=== PATIENT | female | born 1990 | race Caucasian/White ===

== ENCOUNTER 2016-09-18 15:25 | Emergency (ER) | payer OTHER ==
[2016-09-18 15:47] VITALS: BP 101/61
--- NOTE | 2016-09-18 15:53 | UC ---
Ear Complaint HPI - HPI Summary HPI Summary: 26 y/o female presents to the urgent care c/o RT ear pain since yesterday. Pt reports she was swimming yesterday and ear pain started, but resolved after 2 hours. Today she went swimming again and ear pain started. Pain is 2/10 now and she has not taking anything to alleviate symptoms. Pt denies fever, cough, URI, dizziness, N/V/D, ROSS. - History of Current Complaint Chief Complaint: UCEar Stated Complaint: EAR PAIN Time Seen by Provider: 09/18/16 15:39 Hx Obtained From: Patient Hx Last Menstrual Period: mirena ?: No Onset/Duration: Gradual Onset, Lasting Days, Still Present Severity Initially: Mild Severity Currently: Mild Pain Intensity: 2 Pain Scale Used: 0-10 Numeric Aggravating Factors: Cold Alleviating Factors: Nothing - Allergies/Home Medications Allergies/Adverse Reactions: Allergies Allergy/AdvReac Type Severity Reaction Status Date / Time No Known Allergies Allergy Verified 09/18/16 15:43 PMH/Surg Hx/FS Hx/Imm Hx Previously Healthy: Yes - Surgical History Surgical History: None - Family History Known Family History: Positive: Hypertension Family History: Breast cancer - Social History Occupation: Employed Full-time Lives: With Family Alcohol Use: None Substance Use Type: None Smoking Status (MU): Never Smoked Tobacco Review of Systems Constitutional: Negative Skin: Negative Eyes: Negative ENT: Ear Ache - Right Respiratory: Negative Cardiovascular: Negative Gastrointestinal: Negative Genitourinary: Negative Motor: Negative Neurovascular: Negative Musculoskeletal: Negative Neurological: Negative Psychological: Negative All Other Systems Reviewed And Are Negative: Yes Physical Exam Triage Information Reviewed: Yes Appearance: Well-Appearing, No Pain Distress, Well-Nourished Vital Signs: Initial Vital Signs Temp 98.5 F 09/18/16 15:44 Pulse 64 09/18/16 15:44 Resp 16 09/18/16 15:44 BP 101/61 09/18/16 15:44 Pulse Ox 100 09/18/16 15:44 Vital Signs Reviewed: Yes Eye Exam: Normal Eyes: Positive: Conjunctiva Clear - PERRLA, EOMI, fundi grossly normal ENT: Positive: Normal ENT inspection, Hearing grossly normal, Pharynx normal, TMs normal - RT external ear canal w/ erythema and mild purulent discharge. TM peraly and positive light reflex. LF external ear canal and TM WNL, no tenderness on palaption or lymphadenopathy. Negative: Nasal congestion, Nasal drainage, Tonsillar swelling, Tonsillar exudate Ear Complaint Course/Dx - Course Course Of Treatment: 26 y/o female presents to the urgent care c/o RT ear pain since yesterday. Pt reports she was swimming yesterday and ear pain started, but resolved after 2 hours. Today she went swimming again and ear pain started. Pain is 2/10 now and she has not taking anything to alleviate symptoms. Pt denies fever, cough, URI, dizziness, N/V/D, ROSS. HX obtained. PE abnormal findigns:RT external ear canal w/ erythema and mild purulent discharge. TM peraly and positive light reflex. LF external ear canal and TM WNL , no tenderness on palaption or lymphadenopathy. Pt Rx ciprofloxacin otic drops x 7 days. Advised if symptoms do not improve or worsen to return to the urgent care for further evaluation and treatment. Pt understood and agreed. - Differential Dx/Diagnosis Differential Diagnosis/HQI/PQRI: Cerumen Impaction, Mastoiditis, Otitis Externa , Otitis Media Provider Diagnoses: 1-RT Otitis externa Discharge - Discharge Plan Condition: Stable Disposition: HOME Prescriptions: Ciprofloxacin HCl (Otic) [Ciprofloxacin 0.2% EAR DROPS] 0.2 % OT BID #1 edgar Patient Education Materials: Otitis Externa (ED) Referrals: No Primary Care Phys,NOPCP [Primary Care Provider] - [facility] [place] [facility] [Outside] Additional Instructions: PLease apply otic drops as directed. Take Ibuprofen or tylenol OTC q6-8hrs prn to alleviate pain. If symptoms do not improve or worsen please return to the urgent care or f/u with a PCP.
== END 2016-09-18 16:00 | disposition home or self-care (01) ==
LOC: UCEAST 15:25
DX: H60.91 Unspecified otitis externa, right ear (principal)
CPT/HCPCS: 99202; G0463

== ENCOUNTER 2016-09-19 12:20 | Emergency (ER) | payer OTHER ==
[2016-09-19 13:18] VITALS: BP 112/61
--- NOTE | 2016-09-19 14:24 | UC ---
Ear Complaint HPI - HPI Summary HPI Summary: complaint of right ear pain that started approx 2 days ago seen at urgent care and dx with otitis externa started antibiotic drops without any relief states she cant hear well not using any other medication for pain - History of Current Complaint Chief Complaint: UCEar Stated Complaint: EAR ACHE Time Seen by Provider: 09/19/16 14:10 Hx Obtained From: Patient Hx Last Menstrual Period: iud - Allergies/Home Medications Allergies/Adverse Reactions: Allergies Allergy/AdvReac Type Severity Reaction Status Date / Time No Known Allergies Allergy Verified 09/19/16 13:18 PMH/Surg Hx/FS Hx/Imm Hx Previously Healthy: No - otitis externa - Surgical History Surgical History: None - Family History Known Family History: Positive: Hypertension Negative: Cardiac Disease, Diabetes Family History: Breast cancer - Social History Occupation: Student Lives: With Family Alcohol Use: None Substance Use Type: None Smoking Status (MU): Never Smoked Tobacco Review of Systems Constitutional: Negative Skin: Negative Eyes: Negative ENT: Ear Ache Respiratory: Negative Cardiovascular: Negative Gastrointestinal: Negative Genitourinary: Negative Motor: Negative Neurovascular: Negative Musculoskeletal: Negative Neurological: Negative Psychological: Negative All Other Systems Reviewed And Are Negative: Yes Physical Exam Triage Information Reviewed: Yes Appearance: No Pain Distress, Well-Nourished Vital Signs: Initial Vital Signs Temp 98.2 F 09/19/16 13:13 Pulse 53 09/19/16 13:13 Resp 18 09/19/16 13:13 BP 112/61 09/19/16 13:13 Pulse Ox 100 09/19/16 13:13 Vital Signs Reviewed: Yes Eyes: Positive: Conjunctiva Clear ENT: Positive: Pharynx normal, Other: - right ear blocked with cerumen Neck: Positive: No Lymphadenopathy Respiratory: Positive: Lungs clear, Normal breath sounds, No respiratory distress, No accessory muscle use Cardiovascular: Positive: RRR, No Murmur, Pulses Normal, Brisk Capillary Refill Abdomen Description: Positive: Nontender, Soft Bowel Sounds: Positive: Present Musculoskeletal: Positive: No Edema Neurological: Positive: Alert Psychological Exam: Normal Skin Exam: Normal Ear Complaint Course/Dx - Differential Dx/Diagnosis Differential Diagnosis/HQI/PQRI: Cerumen Impaction, Otitis Externa Provider Diagnoses: right otitis externa. cerumen impaction right ear Discharge - Discharge Plan Condition: Stable Disposition: HOME Patient Education Materials: Cerumen Impaction (ED), Otitis Externa (ED) Referrals: No Primary Care Phys,NOPCP [Primary Care Provider] - [facility] [place] [facility] [Outside] Additional Instructions: Please continue antibiotic eradrops as directed Increase fluids and rest Take acetaminophen or ibuprofen for fever or pain Please review your discharge instructions. If your symptoms do not improve please call your primary care provider or return to urgent care.
== END 2016-09-19 15:08 | disposition home or self-care (01) ==
LOC: UCEAST 12:20
DX: H60.91 Unspecified otitis externa, right ear (principal); H61.21 Impacted cerumen, right ear
CPT/HCPCS: 99211; G0463

== ENCOUNTER 2016-09-22 09:43 | Emergency (ER) | payer OTHER ==
[2016-09-22 09:48] VITALS: BP 111/74
--- NOTE | 2016-09-22 10:22 | UC ---
Karla Salgado Rebecca, scribed for Lyndsey Aragon MD on 09/22/16 at 0949 . Ear Complaint HPI - HPI Summary HPI Summary: Pt is a 26 y/o F who presents to [facility] c/o R ear pain for 5 days. Sx began after having swimming and having water from [employer] stuck in her R ear. Pain is currently mild, ranked 3/10, slightly worse than it was at onset, and characterized as an ache. Sx aggravated and alleviated by nothing, unchanged by Ciprofloxacin ear drops. Additionally c/o hearing loss on the R side and ROSS that she believes to be related to the infection. Denies fever. No pain with chewing. She was evaluated at [facility] on 09/18 and D/C to home with Dx of otitis externa and an Rx for Ciprofloxacin ear drops of which she has 2 days left. Was seen again on 09/19 during which her ear was flushed and was D/C to home with instructions to continue ear drops. Has ongoing pain and blunted hearing. - History of Current Complaint Chief Complaint: UCEar Stated Complaint: EAR PAIN Time Seen by Provider: 09/22/16 09:49 Hx Obtained From: Patient Hx Last Menstrual Period: merina Onset/Duration: Lasting Days - 5 days, Still Present Severity Currently: Mild Pain Intensity: 3 Pain Scale Used: 0-10 Numeric Aggravating Factors: Nothing Alleviating Factors: Nothing Associated Signs/Symptoms: Positive: Hearing Loss - Allergies/Home Medications Allergies/Adverse Reactions: Allergies Allergy/AdvReac Type Severity Reaction Status Date / Time No Known Allergies Allergy Verified 09/19/16 13:18 PMH/Surg Hx/FS Hx/Imm Hx Previously Healthy: Yes - Surgical History Surgical History: None - Family History Known Family History: Positive: Hypertension, Other - mother with breast cancer Negative: Cardiac Disease, Diabetes Family History: Breast cancer - Social History 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 Alcohol Use: None Substance Use Type: None Smoking Status (MU): Never Smoked Tobacco Review of Systems Constitutional: Negative Skin: Negative Eyes: Negative ENT: Ear Ache - Right with hearing loss Respiratory: Negative Cardiovascular: Negative Gastrointestinal: Negative Genitourinary: Negative Motor: Negative Neurovascular: Negative Musculoskeletal: Negative Neurological: Headache Psychological: Negative All Other Systems Reviewed And Are Negative: Yes Physical Exam Triage Information Reviewed: Yes Appearance: Well-Appearing, Pain Distress - mild Vital Signs: Initial Vital Signs Temp 97.7 F 09/22/16 09:45 Pulse 62 09/22/16 09:45 Resp 16 09/22/16 09:45 BP 111/74 09/22/16 09:45 Pulse Ox 100 09/22/16 09:45 Vital Signs Reviewed: Yes ENT: Positive: Pharynx normal, Other: - right ear canal with debris, canal erythema and edema. Mild to moderate canal closure. TM normal post debridement with ear flushing. No pre- or posterior auricular adenopathy. Mild erythema, tenderness posterior to ear. Neck: Positive: Supple, Nontender, No Lymphadenopathy Respiratory: Positive: Lungs clear, Normal breath sounds Cardiovascular: Positive: RRR, No Murmur Neurological: Positive: Alert Psychological Exam: Normal Re-Evaluation - Re-Evaluation First Eval Re-Evaluation Time: 10:14 Change: Improved Comment: The ear was flushed and the pt is feeling better. She can hear again. Ear Complaint Course/Dx - Course Course Of Treatment: right otitis externa. Add cephalexin to treatment, extend course of cipro otic. - Differential Dx/Diagnosis Differential Diagnosis/HQI/PQRI: Cellulitis, Otitis Externa, Otitis Media Provider Diagnoses: right otitis media. Discharge - Discharge Plan Condition: Stable Disposition: HOME Prescriptions: Cephalexin CAP* [Keflex 500 CAP*] 500 mg PO TID #15 cap Ciprofloxacin HCl (Otic) [Ciprofloxacin 0.2% EAR DROPS] 0.2 % OT BID #1 edgar Patient Education Materials: Otitis Externa (ED) Referrals: No Primary Care Phys,NOPCP [Primary Care Provider] - Additional Instructions: Begin cephalexin to treat associated cellulitis. Five days treatment should be adequate. Extend the course of cipro otic drops for another five days. Both prescriptions have been sent. Continue use of advil as needed up to 600mg three times daily for pain control The documentation as recorded by the Karla sears Rebecca accurately reflects the service I personally performed and the decisions made by me, Lyndsey Aragon MD.
== END 2016-09-22 10:25 | disposition home or self-care (01) ==
LOC: UCEAST 09:43
DX: H66.91 Otitis media, unspecified, right ear (principal)
CPT/HCPCS: 99213; G0463